=== PATIENT | female | born 2000 | race Caucasian/White ===

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

== ENCOUNTER 2023-06-04 09:54 | Emergency (ER) | payer MEDICAID, OTHER ==
[~2023-06-04] VITALS: Ht 154.9 cm; Wt 52.2 kg
[2023-06-04 10:02] VITALS: BP 104/66; PULSE 121; RESP 16; TEMP 100.3; O2SAT 97
[2023-06-04] MEDS ORDERED: BPM/473S94 PO (11:04)
[2023-06-04] MEDS ORDERED: IBUP-2213 PO (11:04)
[2023-06-04] MEDS ORDERED: IBUPROFEN 600 MG TAB PO ONE (11:05)
[2023-06-04 11:17] LABS: FLU A ANTIGEN negative (NEGATIVE); FLU B ANTIGEN negative (NEGATIVE)
[2023-06-04 11:21] VITALS: TEMP 99.7
[2023-06-05] MEDS ORDERED: GUAI237L76 PO (08:25)
== END 2023-06-04 11:21 | disposition home or self-care (01) ==
LOC: MED 09:54
DX: J06.9 Acute upper respiratory infection, unspecified (principal); Z20.822 Contact with and (suspected) exposure to COVID-19; Z79.899 Other long term (current) drug therapy; Z79.1 Long term (current) use of non-steroidal anti-inflammatories (NSAID)
CPT/HCPCS: 99283

== ENCOUNTER 2023-06-20 19:05 | Emergency (ER) | payer MEDICAID ==
[~2023-06-20] VITALS: Ht 157.5 cm; Wt 52.6 kg
[~2023-06-20 19:05] MED LIST: BPM/473S94 PO; GUAI237L76 PO; IBUP-2213 PO
[2023-06-20 19:40] VITALS: BP 114/67; PULSE 104; RESP 18; TEMP 98.4; O2SAT 95
[2023-06-20 20:27] LABS: BILIRUBIN,URINE NEGATIVE (NEGATIVE); BLOOD, URINE NEGATIVE (NEGATIVE); COLOR,URINE YELLOW (YELLOW); LEUKOCYTE ESTERASE ,URINE 2+ (NEGATIVE); NITRITE, URINE NEGATIVE (NEGATIVE); PH,URINE 8.5 (5.0-9.0); PROTEIN,URINE NEGATIVE (NEGATIVE); UGLUCOSE NEGATIVE (NEGATIVE); UROBILINOGEN,URINE 0.2 EU/dL (0.2 - 1)
[2023-06-20] MEDS ORDERED: cefTRIAXone 500 MG VIAL ONE ×2 (20:30)
[2023-06-20 20:31] LABS: APPEARANCE,URINE HAZY (CLEAR)
[2023-06-20] MEDS ORDERED: LIDOCAINE MPF 1% 5 ML ONE (20:31)
[2023-06-20 20:45] LABS: BACTERIA,URINE 3+ /HPF (None Seen); RBC,URINE NONE SEEN /HPF (0-5); SQUAMOUS EPITHELIAL CELL,UR None Seen /LPF (0-3 (FEW)); WBC,URINE TOO MANY TO COUNT /HPF (0-5)
[2023-06-20] MEDS: cefTRIAXone 500 MG in LIDOCAINE MPF 1% 1 ML IM ONE (20:57)
[2023-06-20] MEDS: DOXYCYCLINE 100 MG CAP PO SCH (20:58)
[2023-06-20] MEDS ORDERED: DOXY-690 PO (21:10)
[2023-06-20] MEDS ORDERED: CEPH-588 PO (21:11)
== END 2023-06-20 21:35 | disposition home or self-care (01) ==
LOC: MED 19:05
DX: N39.0 Urinary tract infection, site not specified (principal); R10.2 Pelvic and perineal pain; N93.9 Abnormal uterine and vaginal bleeding, unspecified; Z79.899 Other long term (current) drug therapy
CPT/HCPCS: 81001; 81025; 87070; 87086; 87110; 87210; 87299; 87491; 96372; 99284; J0696; J2001

== ENCOUNTER 2024-02-20 13:21 | Emergency (ER) | payer MEDICAID ==
[~2024-02-20] VITALS: Ht 154.9 cm; Wt 56.4 kg
[~2024-02-20 13:21] MED LIST changes: +CEPH-588 PO; +DOXY-690 PO
[2024-02-20 13:52] VITALS: BP 120/80; PULSE 103; RESP 20; TEMP 97.1; O2SAT 98
[2024-02-20 14:30] LABS: APPEARANCE,URINE CLEAR (CLEAR); BILIRUBIN,URINE NEGATIVE (NEGATIVE); BLOOD, URINE NEGATIVE (NEGATIVE); COLOR,URINE YELLOW (YELLOW); LEUKOCYTE ESTERASE ,URINE NEGATIVE (NEGATIVE); NITRITE, URINE NEGATIVE (NEGATIVE); PROTEIN,URINE TRACE (NEGATIVE); UGLUCOSE NEGATIVE (NEGATIVE); UROBILINOGEN,URINE 0.2 EU/dL (0.2 - 1)
[2024-02-20] MEDS: KETOROLAC 60 MG/2 ML VIAL IM ONE (14:45)
[2024-02-20] MEDS: MORPHINE SULFATE 4 MG/ML SYR IVP ONE (15:43)
[2024-02-20 15:44] LABS: BASOPHILS % (AUTO) 0.2 % (0.0-2.0); LYMPHOCYTES # (AUTO) 1.3 K/uL (2.5-16.5); MEAN CORPUSCULAR HEMOGLOBIN 28 pg (27-31); MEAN CORPUSCULAR HGB CONC 33 g/dL (33-37); MEAN CORPUSCULAR VOLUME 85.3 fL (80-94); MONOCYTES # (AUTO) 0.6 K/uL (0.8-1.0); MONOCYTES % (AUTO) 6.2 % (1.7-9.3); NEUTROPHILS # (AUTO) 7.1 K/uL (1.8-7.7); NEUTROPHILS % (AUTO) 79.6 % (42.2-75.2); PLATELET COUNT (AUTO) 233 K/uL (140-450); RED BLOOD CELL COUNT(AUTO) 4.93 MIL/uL (4.20-5.40); RED CELL DISTRIBUTION WIDTH 13.8 % (11.6-13.7)
[2024-02-20 15:59] LABS: ALBUMIN 4.8 g/dL (3.4-5.0); BILIRUBIN,DIRECT 0.2 mg/dL (0.0-0.3); TOTAL BILIRUBIN 0.9 mg/dL (0.0-1.0); TOTAL PROTEIN, SERUM 8.2 g/dL (6.4-8.2)
[2024-02-20 16:04] LABS: ANION GAP 22.4 (8-16); CALCIUM 9.3 mg/dL (8.5-10.1); CARBON DIOXIDE 19.7 mmol/L (21-32); CREATININE 1.1 mg/dL (0.6-1.3); POTASSIUM 3.1 mmol/L (3.5-5.1)
[2024-02-20] MEDS ORDERED: IBUP-2213 PO (16:42)
[2024-02-20] MEDS ORDERED: ACET-8905 PO (16:42)
[2024-02-20] MEDS ORDERED: ONDA8TAB87 PO (16:42)
[2024-02-20] MEDS ORDERED: ONDANSETRON 4 MG/2 ML VIAL ONE (16:47)
[2024-02-20] MEDS: ONDANSETRON 4 MG/2 ML VIAL IVP ONE (17:47)
[2024-02-20 17:58] VITALS: BP 131/82; PULSE 100; RESP 22; TEMP 97.1; O2SAT 100
== END 2024-02-20 17:58 | disposition home or self-care (01) ==
LOC: MED 13:21
DX: N83.201 Unspecified ovarian cyst, right side (principal); Z79.899 Other long term (current) drug therapy
CPT/HCPCS: 36415; 74176; 80048; 80076; 81003; 81025; 83690; 85025; 96372; 96374; 96375; 99285; J1885; J2270; J2405